=== PATIENT | female | born 1985 | race Caucasian/White ===

== ENCOUNTER 2020-08-27 10:10 | Emergency (ER) | payer MEDICAID ==
[~2020-08-27] VITALS: Ht 170.2 cm; Wt 55.8 kg
--- NOTE | 2020-08-27 10:57 | NUR ---
Patient discharged to home in stable condition. Written and verbal after care instructions given. Patient verbalizes understanding of instructions. Stressed follow up or return to ER for worsening s/s.
== END 2020-08-27 11:00 | disposition home or self-care (01) ==
LOC: ER 10:10
DX: B34.9 Viral infection, unspecified (principal); Z20.828 Contact with and (suspected) exposure to other viral communicable diseases
CPT/HCPCS: 71045; 99284; U0003; A4663

== ENCOUNTER 2021-09-05 14:05 | Emergency (ER) | payer MEDICAID, OTHER ==
[~2021-09-05] VITALS: Ht 167.6 cm; Wt 60.3 kg
--- NOTE | 2021-09-05 14:35 | NUR ---
DR DE DIOS AT BEDSIDE FOR MSE.
[2021-09-05] MEDS ORDERED: HYDROCODONE/APAP 5-325MG TABLET PO ONE (15:15)
[2021-09-05] MEDS ORDERED: OXYC-128 PO (15:30)
[2021-09-05] MEDS ORDERED: HYDROCODONE/APAP 5-325MG TABLET ONE (15:35)
--- NOTE | 2021-09-05 15:47 | NUR ---
Patient discharged to home in stable condition. Written and verbal after care instructions given. Patient verbalizes understanding of instructions. Stressed follow up or return to ER for worsening s/s. Ambulated out of ED in steady gait.
[2021-09-05 15:48] VITALS: BP 120/70
== END 2021-09-05 15:50 | disposition home or self-care (01) ==
LOC: ER 14:05
DX: S16.1XXA Strain of muscle, fascia and tendon at neck level, initial encounter (principal); V43.52XA Car driver injured in collision with other type car in traffic accident, initial encounter; Y92.410 Unspecified street and highway as the place of occurrence of the external cause; R41.3 Other amnesia
CPT/HCPCS: 70450; 72125; A4663